=== PATIENT | female | born 1970 | race Caucasian/White ===

== ENCOUNTER 2017-02-25 23:27 | Emergency (ER) | payer BC, MEDICAID ==
--- NOTE | 2017-02-26 01:03 | EDPHY ---
H & P Time Seen by Provider: 02/25/17 23:43 HPI/ROS: HPI Left foot injury. 46-year-old female by private vehicle. She is traveling from [place] in a camper van with her family. She stepped out of the camper van awkwardly onto her left foot and ankle twisting her left foot. She complains of pain to the left distal midfoot. She is able to bear weight but with some discomfort. She did not hit her head. She denies any other injury or complaint. ROS: Constitutional: No fever, no chills. No weakness. Musculoskeletal: No back pain. No neck pain. No myalgias or arthralgias. Skin: No rashes. No lacerations or abrasions. Neurological: No focal weakness or altered sensation. Past medical history: Tonsillectomy. Social history: Here with her and 2 kids. As above. Nonsmoker. Physical Exam: General Appearance: Alert, no distress. This patient is responding to questions appropriately and in full sentences. This patient appears well- hydrated and well-nourished. Eyes: Pupils equal and round no pallor or injection. No lid edema, erythema or injection. Left foot and ankle exam: Significant for tenderness on palpation over the dorsal aspect 3rd distal metacarpal. No bony step-off or deformity noted on palpation. No ecchymosis, edema, erythema, warmth noted on palpation of this area. No edema or swelling on gross inspection head of the left ankle. No significant tenderness on palpation of the lateral and medial malleolus as well as posterior malleolus. Achilles tendon is intact. The left foot is neurovascularly intact. Neurological: Motor sensory function is grossly intact. Cranial nerves are normal. Skin: Warm and dry, no rashes. Musculoskeletal: Neck is supple and nontender. Extremities are symmetrical. All joints range without pain or impingement. Psychiatric: No agitation. No depression. Database: EKG: Imaging: Left foot x-ray series: Significant for a nondisplaced oblique fracture distal 3rd metacarpal. Interpreted by me. Procedures: Emergency department course: Patient sent for x-ray from triage. Results of x-rays discussed with her. Plan of management will be orthopedic boot, crutches, nonweightbearing and follow up with Orthopedics within the next 2-3 days for re-evaluation and further management. Patient is in agreement. Ibuprofen dosing for pain discussed. Return to emergency department precautions reviewed with her. All of her questions were answered. She was discharged in good condition Differential Diagnosis: The differential diagnosis on this patient includes but is not limited to 3rd metatarsal fracture. Ankle fracture, subluxation, dislocation unlikely. This represents a partial list of diagnoses considered. These considerations are based on history, physical exam, past history, reassessment and diagnostic testing. Smoking Status: Never smoked Constitutional: Initial Vital Signs Temperature (C) 37 C 02/25/17 23:31 Heart Rate 62 02/25/17 23:31 Respiratory Rate 18 02/25/17 23:31 Blood Pressure 107/50 L 02/25/17 23:31 O2 Sat (%) 97 02/25/17 23:31 O2 Delivery Mode Room Air Allergies/Adverse Reactions: No Known Allergies Allergy (Unverified 02/25/17 23:30) Home Medications: Medication Instructions Recorded NK [No Known Home Meds] 02/25/17 Medical Decision Making - Diagnostics Imaging Results: Imaging Impressions Foot X-Ray 02/25/17 23:44 Impression: Acute nondisplaced oblique fracture of the left third metatarsal distal neck region. Departure - Departure Disposition: Home, Routine, Self-Care Clinical Impression: Metatarsal bone fracture Condition: Good Instructions: Foot Fracture in Adults (ED) Additional Instructions: Read and follow provided instructions. Follow-up with Orthopedics, Dr. Corral or 1 of his partners within the next 2-3 days for re-evaluation and further management. Ibuprofen dosin mg every 6 hours with meals for the next 3 days only. Take only as needed for pain. Orthopedic boot is to be in place when up and ambulating. Nonweightbearing to left foot until seen and evaluated by Orthopedics. Return to the emergency department for worsening pain, discoloration, swelling or other serious concerns. Referrals: Gorge Corral MD [Medical Doctor] - As per Instructions
[2017-02-26 02:00] VITALS: BP 112/65; PULSE 66; RESP 16; TEMP 98.1; O2SAT 96
== END 2017-02-26 02:03 | disposition home or self-care (01) ==
DX: S92.335A Nondisplaced fracture of third metatarsal bone, left foot, initial encounter for closed fracture (principal); X50.9XXA Other and unspecified overexertion or strenuous movements or postures, initial encounter